=== PATIENT | male | born 1980 ===

== ENCOUNTER 2016-05-12 00:42 | Inpatient (IN) | payer OTHER ==
[~2016-05-12] VITALS: Ht 190.5 cm; Wt 86.7 kg
[2016-05-12] MEDS ORDERED: AMBIEN10 MG PO (01:48)
[2016-05-12] MEDS ORDERED: NEURONTIN 300300 MG PO (01:48)
[2016-05-12] MEDS ORDERED: REMERON15 MG PO (01:49)
[2016-05-12 04:26] LABS: HEMOGLOBIN 13.6 gm/dl (14.0-17.5); RED BLOOD COUNT 4.28 M/UL (4.20-5.50); WHITE BLOOD COUNT 13.4 K/UL (4.5-11.0)
[2016-05-12 04:48] LABS: BUN/CREATININE RATIO 10 (0-10)
[2016-05-13 05:15] LABS: HEMOGLOBIN 13.6 gm/dl (14.0-17.5); RED BLOOD COUNT 4.28 M/UL (4.20-5.50)
[2016-05-13 05:20] LABS: WHITE BLOOD COUNT 8.3 K/UL (4.5-11.0)
[2016-05-13 05:41] LABS: BUN/CREATININE RATIO 9 (0-10)
[2016-05-13] MEDS ORDERED: LEVAQUIN750 MG PO (15:20)
[2016-05-13] MEDS ORDERED: MEDROL DOSEPAK 24 MG PO (15:26)
[2016-05-13] MEDS ORDERED: SYMBICORT 80-41 INHA INH (15:28)
[2016-05-13] MEDS ORDERED: PROVENTIL HFA 61 INH INH ×2 (15:29→15:30)
[2016-05-13] MEDS ORDERED: CHERATUSSIN AC473 ML PO (15:33)
[2016-05-13] MEDS ORDERED: PROTONIX40 MG PO (15:36)
[2016-05-13] MEDS ORDERED: ULTRAM50 MG PO (16:03)
[2016-05-13] MEDS ORDERED: REQUIP0.5 MG PO (16:04)
== END 2016-05-13 16:35 | disposition home or self-care (01) | DRG 190 ==
LOC: MED SURG 4 00:42 → PROG CARE 00:55 → MED SURG 4 00:55 → PROG CARE 14:41
PROVIDERS: Emergency Medicine; ADMIT Internal Medicine
DX: J44.0 Chronic obstructive pulmonary disease with (acute) lower respiratory infection (principal); J18.9 Pneumonia, unspecified organism; J44.1 Chronic obstructive pulmonary disease with (acute) exacerbation; F15.90 Other stimulant use, unspecified, uncomplicated; F12.90 Cannabis use, unspecified, uncomplicated; F10.120 Alcohol abuse with intoxication, uncomplicated; F17.210 Nicotine dependence, cigarettes, uncomplicated; K76.0 Fatty (change of) liver, not elsewhere classified; R25.1 Tremor, unspecified; R91.8 Other nonspecific abnormal finding of lung field; R11.2 Nausea with vomiting, unspecified; R19.7 Diarrhea, unspecified; G89.4 Chronic pain syndrome; Z87.898 Personal history of other specified conditions; Z88.3 Allergy status to other anti-infective agents; Z88.0 Allergy status to penicillin; Z88.1 Allergy status to other antibiotic agents; Z79.899 Other long term (current) drug therapy
CPT/HCPCS: 36415; 76705; 80053; 80074; 83605; 83735; 85027; 87040; 94640; 94664; J1956; J2550; J3370; J3411; J7030; J7050; J7070; J7509